=== PATIENT | female | born 1940 | race Caucasian/White ===

== ENCOUNTER → 2019-02-26 12:18 | Outpatient (CLI) | payer MEDICARE, SELFPAY ==
--- NOTE | 2019-02-26 12:37 | US_ITS ---
US [facility]NA Thyroid HISTORY: Dominant left-sided thyroid nodule ITS.REASON: THYROID NEOPLASM ORDERING PHYSICIAN: Vamsi Alvarez MD PATIENT AGE: 79 years COMPARISON: Prebiopsy ultrasound: Ultrasound performed of left lobe of thyroid gland demonstrates a 2.7 x 1.9 cm heterogeneous nodule in the lower pole targeted for biopsy. TECHNIQUE: Following obtaining informed consent, using aseptic technique and local anesthesia with buffered lidocaine, fine-needle aspiration was performed of the nodule of interest using sonographic guidance. 2 passes were made into the nodule with a 21-gauge needle. Specimen was given to cytology. The patient tolerated the procedure well without evidence of immediate complications and left the ultrasound suite in stable condition. CYTOLOGY:Negative for malignant cells IMPRESSION: Uneventful ultrasound-guided fine-needle aspiration of the left thyroid nodule showing benign findings
== END ==
PROVIDERS: PCP Family Medicine; Visit Provider Otolaryngology
DX: D44.0 Neoplasm of uncertain behavior of thyroid gland (principal)
CPT/HCPCS: 10005; 76942; 88173